=== PATIENT | male | born 1980 | race African-American/Black ===

== ENCOUNTER 2016-09-30 02:21 | Emergency (ER) | payer SELFPAY ==
[~2016-09-30] VITALS: Ht 180.3 cm; Wt 84.7 kg
[~2016-09-30 02:21] MED LIST: AMBI10TA PO; BENZ1TAB PO; GEOD60CA PO; GLIP10TA6 PO; GLUC1000 PO; GLUC10TA3 PO; GLUCTAB PO; METF1000 PO; ZIPR1CAP27 PO; ZOLP10TA3 PO
[2016-09-30 02:28] VITALS: BP 119/83; PULSE 86; RESP 14; TEMP 98.6; O2SAT 100
--- NOTE | 2016-09-30 04:02 | PD ---
HPI Chief Complaint: hyperglycemia Time Seen by Provider: 03:55 Travel History International Travel<30 days: No Contact w/Intl Traveler<30days: No Traveled to known affect area: No History of Present Illness HPI 36-year-old male presents to the emergency department by private transportation for medication refill. Patient states that he is diabetic. Patient states she' s been out of his medication times one month. Patient notes that when he has trouble with his vision his blood sugar is elevated. Patient has recently had established with an insurance carrier has not yet been assigned a primary care provider and needs medication to bridge him until he can get into his new primary care provider. Patient denies fever chills nausea vomiting chest pain shortness of breath palpitations abdominal pain cramping diarrhea dysuria frequency urgency flank pain polyuria polydipsia polyphagia or weight change. Patient was noted in triage to have a random bedside blood sugar of 281. PFSH Past Medical History Narrative Medical Type 2 diabetes schizophrenia tobacco use nursing notes reviewed Diabetes: Yes Diminished Hearing: No Musculoskeletal: Yes (SEEN HERE 10/04/07) Psychiatric: Yes Immunizations Current: Yes Schizophrenia: Yes Social History Alcohol Use: No Tobacco Use: Yes (10/03 PPD) Substance Use: No Allergies-Medications (Allergen,Severity, Reaction): Coded Allergies: No Known Allergies (Verified , 09/30/16) Reported Meds & Prescriptions Reported Meds & Active Scripts Active Glipizide 10 Mg Tab 10 Mg PO BIDAC Take 30 minutes before a meal Metformin (Metformin HCl) 1,000 Mg Tab 1,000 Mg PO BIDPC With meals Reported Geodon (Ziprasidone) 60 Mg Cap 60 Mg PO BID Glipizide 10 Mg Tab 10 Mg PO BIDAC Take 30 minutes before a meal Metformin (Metformin HCl) 1,000 Mg Tab 1,000 Mg PO BIDPC With meals Review of Systems Except as stated in HPI: all other systems reviewed are Neg General / Constitutional: No: Fever, Chills HENT: No: Congestion Cardiovascular: No: Chest Pain or Discomfort, Palpitations, Diaphoresis Respiratory: No: Shortness of Breath Gastrointestinal: No: Nausea, Vomiting, Diarrhea, Abdominal Pain Genitourinary: No: Urgency, Frequency, Dysuria Musculoskeletal: No: Myalgias, Arthralgias Skin: No Rash Neurologic: No: Weakness, Dizziness, Syncope Psychiatric: No: Anxiety Endocrine: No: Polyuria, Polydipsia Hematologic/Lymphatic: No: Lymph Node Enlargement Physical Exam Narrative GENERAL: Well-developed well-nourished male in no acute distress no respiratory distress SKIN: Warm and dry. HEAD: Normocephalic. EYES: No scleral icterus. No injection or drainage. NECK: Supple, trachea midline. No JVD or lymphadenopathy. CARDIOVASCULAR: Regular rate and rhythm without murmurs, gallops, or rubs. RESPIRATORY: Breath sounds equal bilaterally. No accessory muscle use. GASTROINTESTINAL: Abdomen soft, non-tender, nondistended. MUSCULOSKELETAL: No cyanosis, or edema. BACK: Nontender without obvious deformity. No CVA tenderness. Data Data Last Documented VS Vital Signs Date Time Temp Pulse Resp B/P Pulse Ox O2 Delivery O2 Flow Rate FiO2 09/30/16 05:03 98.4 88 16 117/[address] [facility] Medical Decision Making Medical Screen Exam Complete: Yes Emergency Medical Condition: Yes Medical Record Reviewed: Yes Differential Diagnosis Medication refill, medication noncompliance, dehydration, DKA, electrolyte disturbance Narrative Course Random glucose 281; triage vital signs within normal range; review of medical records indicates multiple visits for medication refill of his diabetic medication and medications for schizophrenia. Last visit was 07/24/16 for same request Diagnosis Primary Impression: Noncompliance with medications Additional Impressions: Poorly controlled type 2 diabetes mellitus Encounter for medication refill Referrals: Primary Care Physician call for appointment [facility] call for appointment Patient Instructions: General Instructions Additional Instructions: Take medications as prescribed Follow-up with your primary care provider Follow-up with your mental health provider at [facility] Med/Other Pt SpecificInfo: Prescription(s) given Scripts Glipizide 10 Mg Tab10 Mg PO BIDAC #60 TAB Ref 0 Take 30 minutes before a meal Prov:Jessica Gray MD 09/30/16 Metformin 1,000 Mg Tab1,000 Mg PO BIDPC #60 TAB Ref 0 With meals Prov:Jessica Gray MD 09/30/16 Disposition: 01 DISCHARGE HOME Condition: Stable Jessica Gray MD Sep 30, 2016 04:02
[2016-09-30] MEDS ORDERED: METF1000 PO ×2 (04:06→04:44)
[2016-09-30] MEDS ORDERED: GLIP10TA6 PO ×2 (04:06→04:44)
[2016-09-30] MEDS ORDERED: GEOD60CA PO (04:06)
[2016-09-30 05:03] VITALS: BP 117/87; PULSE 88; RESP 16; TEMP 98.4; O2SAT 97
== END 2016-09-30 05:07 | disposition home or self-care (01) ==
LOC: PHED 02:21 → PHEFT 05:07
DX: E11.65 Type 2 diabetes mellitus with hyperglycemia (principal); Z91.14 Patient's other noncompliance with medication regimen; Z72.0 Tobacco use
CPT/HCPCS: 99281

== ENCOUNTER 2016-11-27 23:11 | Emergency (ER) | payer OTHER ==
[~2016-11-27] VITALS: Ht 180.3 cm; Wt 85.0 kg
[~2016-11-27 23:11] MED LIST changes: -AMBI10TA PO; -BENZ1TAB PO; -GLUC1000 PO; -GLUC10TA3 PO; -GLUCTAB PO; -ZIPR1CAP27 PO; -ZOLP10TA3 PO
[2016-11-27 23:14] VITALS: BP 110/75; PULSE 99; RESP 20; TEMP 98.5; O2SAT 97
[2016-11-27] MEDS ORDERED: BENZ1TAB PO (23:28)
--- NOTE | 2016-11-27 23:55 | PD ---
HPI Chief Complaint: Medication Refill Request Time Seen by Provider: 23:49 Travel History International Travel<30 days: No Contact w/Intl Traveler<30days: No Traveled to known affect area: No History of Present Illness HPI The patient is a 36-year-old male schizophrenic that states he overslept his appointment to refill his medications today. He states he needs Geodon and Cogentin. He plans to follow-up with psychiatry and make up for the missed appointment. He has no other medical problems. He is not delusional and took his last Geodon and Cogentin this morning. PFSH Past Medical History Diabetes: Yes Patient Takes Glucophage: Yes Diminished Hearing: No Musculoskeletal: Yes (SEEN HERE 10/04/07) Psychiatric: Yes Immunizations Current: No Schizophrenia: Yes ?: Not Social History Alcohol Use: No Tobacco Use: Yes (10/03 PPD) Substance Use: No Allergies-Medications (Allergen,Severity, Reaction): Coded Allergies: No Known Allergies (Verified , 09/30/16) Reported Meds & Prescriptions Reported Meds & Active Scripts Active Geodon (Ziprasidone) 60 Mg Cap 60 Mg PO DAILY Benztropine (Benztropine Mesylate) 1 Mg Tab 1 Mg PO HS Glipizide 10 Mg Tab 10 Mg PO BIDAC Take 30 minutes before a meal Metformin (Metformin HCl) 1,000 Mg Tab 1,000 Mg PO BIDPC With meals Reported Benztropine (Benztropine Mesylate) 1 Mg Tab 1 Mg PO BID Geodon (Ziprasidone) 60 Mg Cap 60 Mg PO BID Glipizide 10 Mg Tab 10 Mg PO BIDAC Take 30 minutes before a meal Metformin (Metformin HCl) 1,000 Mg Tab 1,000 Mg PO BIDPC With meals Review of Systems Except as stated in HPI: all other systems reviewed are Neg Physical Exam Narrative GENERAL: Well-nourished, well-developed patient in no apparent distress. His vital signs are normal. SKIN: Warm and dry. No needle tracks nor wrist slash soni are present. HEAD: Normocephalic. EYES: No scleral icterus. No injection or drainage. NECK: Supple, trachea midline. No JVD or lymphadenopathy. CARDIOVASCULAR: Regular rate and rhythm without murmurs, gallops, or rubs. RESPIRATORY: Breath sounds equal bilaterally. No accessory muscle use. GASTROINTESTINAL: Abdomen soft, non-tender, nondistended. MUSCULOSKELETAL: No cyanosis, or edema. BACK: Nontender without obvious deformity. No CVA tenderness. Data Data Last Documented VS Vital Signs Date Time Temp Pulse Resp B/P Pulse Ox O2 Delivery O2 Flow Rate FiO2 11/27/16 23:14 98.5 99 20 110/75 97 Orders Benztropine (Cogentin) (11/28/16 00:00) Ziprasidone (Geodon) (11/28/16 00:00) [facility] Medical Decision Making Medical Screen Exam Complete: Yes Emergency Medical Condition: Yes Medical Record Reviewed: Yes Differential Diagnosis Schizophrenia with delusional behavior, drug seeking behavior, medication refill Narrative Course The patient needs a medication refill. He also needs to take the medications tonight. He works and states he needs a good nights sleep tonight. He is not having delusional behavior and is not a danger to himself or others. Diagnosis Primary Impression: Encounter for medication refill Additional Instructions: Follow-up with psychiatry as soon as you can to make up for that appointment you missed. Med/Other Pt SpecificInfo: Prescription(s) given Scripts Ziprasidone (Geodon)60 Mg Cap60 Mg PO DAILY #30 CAP Ref 0 Prov:Maximino Craven MD 11/28/16 Benztropine 1 Mg Tab1 Mg PO HS #30 TAB Ref 0 Prov:Maximino Craven MD 11/28/16 Disposition: 01 DISCHARGE HOME Condition: Stable Maximino Craven MD Nov 27, 2016 23:55
[2016-11-28] MEDS ORDERED: BENZTROPINE MESYLATE 1 MG TAB PO ONE
[2016-11-28] MEDS ORDERED: ZIPRASIDONE HCL 60 MG CAP PO ONE
[2016-11-28] MEDS ORDERED: GEOD60CA PO (00:01)
[2016-11-28] MEDS ORDERED: BENZ1TAB PO (00:01)
== END 2016-11-28 00:34 | disposition home or self-care (01) ==
LOC: PHED 23:21
DX: F20.9 Schizophrenia, unspecified (principal); E11.9 Type 2 diabetes mellitus without complications; Z79.4 Long term (current) use of insulin
CPT/HCPCS: 99282

== ENCOUNTER 2016-12-30 00:33 | Emergency (ER) | payer OTHER ==
[~2016-12-30] VITALS: Ht 180.3 cm; Wt 86.9 kg
[~2016-12-30 00:33] MED LIST changes: +BENZ1TAB PO
[2016-12-30 00:40] VITALS: BP 113/83; PULSE 88; RESP 16; TEMP 98; O2SAT 96
[2016-12-30 01:07] VITALS: BP 113/83; PULSE 88; RESP 18; TEMP 98; O2SAT 96
[2016-12-30] MEDS ORDERED: BENZ1TAB PO (01:26)
[2016-12-30] MEDS ORDERED: GEOD60CA PO (01:26)
--- NOTE | 2016-12-30 01:27 | PD ---
HPI Chief Complaint: Medication Refill Request Time Seen by Provider: 01:19 Travel History International Travel<30 days: No Contact w/Intl Traveler<30days: No Traveled to known affect area: No History of Present Illness HPI 36-year-old male with history of schizophrenia prescribed Geodon and Cogentin states he took his last dose of medication last night Saturday evening and does not have any prescription medication for tonight Saturday night or for Saturday night. Patient has appointment with his prescribing physician on Saturday but states he needs medication to cover him for Saturday and Saturday. Patient denies any suicidal or homicidal ideation. Patient's had no delusions and no hallucinations. Patient is otherwise doing well and was in other concerns or complaints. [facility] Past Medical History Narrative Medical Type 2 diabetes, schizophrenia; no surgeries; tobacco use; nursing notes reviewed Diabetes: Yes Patient Takes Glucophage: Yes Diminished Hearing: No Musculoskeletal: Yes (SEEN HERE 10/04/07) Psychiatric: Yes Immunizations Current: Yes Schizophrenia: Yes Tetanus Vaccination: Unknown Influenza Vaccination: No Social History Alcohol Use: No Tobacco Use: Yes (10/03 PPD) Substance Use: No Allergies-Medications (Allergen,Severity, Reaction): Coded Allergies: No Known Allergies (Verified , 12/30/16) Reported Meds & Prescriptions Reported Meds & Active Scripts Active Reported Benztropine (Benztropine Mesylate) 1 Mg Tab 1 Mg PO BID Geodon (Ziprasidone) 60 Mg Cap 260 Mg PO BID Metformin (Metformin HCl) 1,000 Mg Tab 1,000 Mg PO BIDPC With meals Review of Systems Except as stated in HPI: all other systems reviewed are Neg Physical Exam Narrative GENERAL: Well developed well-nourished male in no acute distress no respiratory distress SKIN: Warm and dry. HEAD: Atraumatic. Normocephalic. EYES: Pupils equal and round. No scleral icterus. No injection or drainage. ENT: No nasal bleeding or discharge. Mucous membranes pink and moist. NECK: Trachea midline. No JVD. CARDIOVASCULAR: Regular rate and rhythm. RESPIRATORY: No accessory muscle use. Clear to auscultation. Breath sounds equal bilaterally. GASTROINTESTINAL: Abdomen soft, non-tender, nondistended. Hepatic and splenic margins not palpable. MUSCULOSKELETAL: Extremities without clubbing, cyanosis, or edema. No obvious deformities. NEUROLOGICAL: Awake and alert. No obvious cranial nerve deficits. Motor grossly within normal limits. Five out of 5 muscle strength in the arms and legs. Normal speech. PSYCHIATRIC: Appropriate mood and affect; insight and judgment normal. Data Data Last Documented VS Vital Signs Date Time Temp Pulse Resp B/P Pulse Ox O2 Delivery O2 Flow Rate FiO2 12/30/16 01:10 88 18 12/30/16 01:07 98.0 113/83 96 MDM Medical Decision Making Medical Screen Exam Complete: Yes Emergency Medical Condition: Yes Medical Record Reviewed: Yes Differential Diagnosis Medication refill, medication noncompliance, anxiety Narrative Course Cooperative 36-year-old male with history of schizophrenia prescribed Geodon and Cogentin took last dose of medication on Saturday with refills available through his primary on Saturday but does not have medication to cover him for Saturday and Saturday and presents for evening dose of Cogentin and Geodon for tonight and requesting prescription to 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 Patient denies other concerns or complaints. Patient is not suicidal or homicidal. Medications provided. Diagnosis Primary Impression: Encounter for medication refill Referrals: Primary Care Physician 2 days Patient Instructions: General Instructions Additional Instructions: Follow-up with your provider for your routine chronic prescriptions Return to the emergency department as needed Med/Other Pt SpecificInfo: Prescription(s) given Scripts Benztropine 1 Mg Tab1 Mg PO HS 3 Days Ref 0 Prov:Jessica Gray MD 12/30/16 Ziprasidone (Geodon)60 Mg Cap60 Mg PO DAILY 3 Days Ref 0 Prov:Jessica Gray MD 12/30/16 Disposition: 01 DISCHARGE HOME Condition: Stable Jessica Gray MD Dec 30, 2016 01:27
[2016-12-30] MEDS ORDERED: ZIPRASIDONE HCL 60 MG CAP PO ONE (01:30)
[2016-12-30] MEDS ORDERED: BENZTROPINE MESYLATE 1 MG TAB PO ONE (01:30)
== END 2016-12-30 01:42 | disposition home or self-care (01) ==
LOC: PHED 00:33
DX: F20.9 Schizophrenia, unspecified (principal); E11.9 Type 2 diabetes mellitus without complications; Z76.0 Encounter for issue of repeat prescription; Z72.0 Tobacco use; Z79.84 Long term (current) use of oral hypoglycemic drugs; Z87.39 Personal history of other diseases of the musculoskeletal system and connective tissue
CPT/HCPCS: 99281